=== PATIENT | male | born 1985 | race Hispanic/Latino ===

== ENCOUNTER 2016-08-09 10:28 | Emergency (ER) | payer OTHER ==
[~2016-08-09] VITALS: Ht 170.2 cm; Wt 83.9 kg
[2016-08-09 10:33] VITALS: BP 128/83
--- NOTE | 2016-08-09 11:23 | ED INFLUENZA/URI COMPLAINT ---
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 yes HPI: 31-year-old male with complaints of fever or flulike illness back pain and generalized body aches nausea and vomiting several times chills sweats minimally productive cough and a sore throat. Symptoms started suddenly at 3 PM yesterday. There are no sick contacts. He does not smoke. He does not feel short of breath or wheezing. He is able to eat and drink, he is urinating normal amounts. He took Advil at 4 AM with some relief. The symptoms are moderate to severe Past History Travel History Traveled to [place] past 21 day No Medical History Any Pertinent Medical History? none Neurological: NONE EENT: NONE Cardiovascular: NONE Respiratory: NONE Gastrointestinal: NONE Hepatic: NONE Renal: NONE Musculoskeletal: NONE Psychiatric: NONE Endocrine: NONE Blood Disorders: NONE Cancer(s): NONE CHOIR SINGER/Reproductive: NONE Surgical History Surgical History: non-contributory Psychosocial History What is your primary language Kazakh Tobacco Use: Never used ETOH Use: denies use Illicit Drug Use: denies illicit drug use Family History Hx Contributory? No Review of Systems Review of Systems Constitutional: Reports: see HPI. EENTM: Reports: see HPI. Respiratory: Reports: see HPI. Cardiovascular: Reports: no symptoms. GI: Reports: no symptoms. Genitourinary: Reports: no symptoms. Musculoskeletal: Reports: no symptoms. Skin: Reports: no symptoms. Neurological/Psychological: Reports: no symptoms. Hematologic/Endocrine: Reports: no symptoms. Immunologic/Allergic: Reports: no symptoms. All Other Systems: Reviewed and Negative Physical Exam Physical Exam Ears, Nose, Throat: Tympanic normal, pharyngeal erythema (mild) Comments: Well-developed well-nourished person in no acute distress HEENT: Normal EENT exam, extraocular motion intact, no nystagmus. Pupils equally round and reactive to light. Nose is atraumatic. External auditory canal and Tympanic membranes clear. Neck: Supple, no lymphadenopathy, normal range of motion without pain or tenderness Back: Nontender, no CVA tenderness. Full range of motion Cardiovascular: Regular rate and rhythms no murmurs, normal JVP Respiratory: Chest nontender. No respiratory distress. Breath sounds clear to auscultation bilaterally Abdomen: Soft, nontender nondistended, no appreciable organomegaly. Normal bowel sounds. No ascites Extremity: No edema, no calf tenderness to palpation, normal and equal pulses. Neuro: Alert oriented x3, motor sensory normal, cranial nerves II through XII grossly intact. Skin: No appreciable rash on exposed skin, skin is warm and dry. Psych: Mood and affect is normal, memory and judgment is normal. Core Measures Severe Sepsis Present: No Septic Shock Present: No Progress Differential Diagnosis: influenza, meningitis, neutropenia, otitis, pneumonia, pharyngitis, sinusitis Plan of Care: Orders Procedure Date/time Status RAPID VIRAL INFLUENZA A 08/09 1035 Complete THROAT CULTURE W/QUICK STREP 08/09 1035 Active Microbiology 08/09 1036 NASOPHARYN: Influenza Virus A & B Rapid Smear - COMP Initial ED EKG: none Comments: Signs and symptoms consistent with influenza. We'll treat with Tamiflu. He is given Toradol 30 mg IM here with good relief of symptoms on reevaluation. He is to return with worse symptoms. Departure Departure Disposition: HOME OR SELF CARE Condition: Stable Clinical Impression Primary Impression: Influenza Referrals: PATIENT HAS NO PRIMARY CARE DR (PCP/Family) Additional Instructions: Take Tamiflu for your influenza infection Take Zofran as needed for nausea Use [id number] multisystem cold medication as needed. Motrin and Tylenol as needed for fever. Drink plenty of fluids. Return or follow-up with your doctor if not better in the next 3-5 days or if you're having continued worsening fevers, nausea, vomiting, shortness of breath, abdominal pain, difficulty swallowing or drinking or worsening flulike illness. Departure Forms: Customer Survey General Discharge Information Prescriptions: Current Visit Scripts Oseltamivir Phosphate (Tamiflu) 1 CAP PO BID #10 CAP Ondansetron (Zofran Odt) 1 TAB SL TID PRN NAUSEA #6 TAB
[2016-08-09] MEDS ORDERED: TAMIFLU75 M1 PO (11:57)
[2016-08-09] MEDS ORDERED: ZOFRAN ODT4 M1 SL (11:57)
== END 2016-08-09 13:43 ==
LOC: ERH 10:28
DX: J11.1 Influenza due to unidentified influenza virus with other respiratory manifestations (principal); R50.9 Fever, unspecified
CPT/HCPCS: 87804; 87804-59; 96372; J1885